=== PATIENT | male | born 1935 | race Native Hawaiian/Other Pacific Islander ===

== ENCOUNTER 2017-04-09 08:28 | Emergency (ER) | payer OTHER ==
[~2017-04-09] VITALS: Ht 162.6 cm; Wt 65.5 kg
[~2017-04-09 08:28] MED LIST: ATOR10 PO; CEFT500T PO; HYDROCODONE PO; METR-1 PO; OXYC-360 PO; VASO10TA8 PO
[2017-04-09 08:32] VITALS: BP 146/76; PULSE 74; RESP 16; TEMP 97.5; O2SAT 99
[2017-04-09] MEDS ORDERED: PRED20 PO (08:49)
[2017-04-09] MEDS ORDERED: OMEP40CA2 PO (08:51)
[2017-04-09] MEDS ORDERED: HYDR12.57 PO (08:52)
--- NOTE | 2017-04-09 08:59 | PD ---
HPI Chief Complaint: Injury Time Seen by Provider: 08:41 Travel History International Travel<30 days: No Contact w/Intl Traveler<30days: No Traveled to known affect area: No History of Present Illness HPI 82-year-old male presents to the emergency room for evaluation of left ankle pain and swelling for the past 2 days. He denies trauma or injury. States pain started gradually and has worsened. Exacerbated with ambulation and when he pushes on the lateral aspect of the ankle. Improves at rest. He has not taken anything for symptoms. Denies any calf pain, fever, chills. He has history of gout in the great toe but that was many years ago. Only other history of hypertension and GERD. PFSH Past Medical History Cancer: No Cardiovascular Problems: Yes (water pill) Diabetes: No Diminished Hearing: No Hiatal Hernia: No Hypertension: Yes Medical other: Yes (HIGH CHOLESTEROL) Thyroid Disease: No Past Surgical History Other Surgery: Yes Social History Alcohol Use: Yes (WINE) Tobacco Use: No Substance Use: No Allergies-Medications (Allergen,Severity, Reaction): Coded Allergies: penicillin G (Unverified Allergy, Unknown, Diarrhea, 04/09/17) Reported Meds & Prescriptions Reported Meds & Active Scripts Active Reported Percocet (Oxycodone/Acetaminophen) 5 Mg/325 Mg Tab 1-2 Tab PO Q6HPRN FOR PAIN Flagyl (Metronidazole) 500 Mg Tab 500 Mg PO BID Ceftin (Cefuroxime Axetil) 500 Mg Tab 500 Mg PO BID [Hydrocodone] 1 Tab PO Q4HPRN Lipitor (Atorvastatin Calcium) 10 Mg Tab 10 Mg PO HS Vasotec (Enalapril Maleate) 10 Mg Tab 10 Mg PO DAILY Review of Systems Except as stated in HPI: all other systems reviewed are Neg Physical Exam Narrative GENERAL: Well-nourished, well-developed male in no acute distress. Afebrile. Ambulatory. SKIN: Focused skin assessment warm/dry. Mild erythema and mild increased warmth of the left foot and ankle. HEAD: Normocephalic. EYES: No scleral icterus. No injection or drainage. NECK: Supple, trachea midline. No JVD or lymphadenopathy. CARDIOVASCULAR: Regular rate and rhythm without murmurs, gallops, or rubs. RESPIRATORY: Breath sounds equal bilaterally. No accessory muscle use. MUSCULOSKELETAL: No cyanosis. Mild to moderate 2+ pitting edema of the left lower ankle and foot. Negative Homans test. No calf tenderness. Full range of motion of the ankle and foot without significant pain. Bounding 2+ dorsalis pedis pulse. Data Data Last Documented VS Vital Signs Date Time Temp Pulse Resp B/P (MAP) Pulse Ox O2 Delivery O2 Flow Rate FiO2 04/09/17 08:32 97.5 74 16 146/76 (99) 99 MDM Medical Decision Making Medical Screen Exam Complete: Yes Emergency Medical Condition: Yes Medical Record Reviewed: Yes Differential Diagnosis Gout, infectious etiology unlikely, sprain, strain Narrative Course 82-year-old male with a history of gout, hypertension, and GERD presents to the emergency room for evaluation of left ankle and foot pain for the past 2 days. He denies trauma or injury. Pain is worsened with ambulation. Improves at rest. Physical exam reveals mild to moderate 2+ pitting edema of the left lower ankle and foot. No edema in the calf or proximal ankle. Negative Homans test. No calf tenderness. Full range of motion of the ankle and foot without significant pain. Bounding 2+ dorsalis pedis pulse. History and physical exam are consistent with inflammatory arthritis. No suspicion for infectious etiology as patient has had no fever and there is no pain with passive range of motion. Patient denies history of diabetes. He will be discharged with short course of prednisone and told to follow-up with a primary care physician or return immediately for worsening symptoms. He understands and agrees to plan. Diagnosis Primary Impression: Gouty arthritis Referrals: Primary Care Physician Additional Instructions: Rest and drink plenty of fluids. Take prednisone as directed, until gone. On day 5, only take 20 mg (1 pill instead of 2). On day 6, take last 20 mg. Take Tylenol as directed, as needed for pain. Apply ice to the affected area for 20 minutes at a time, as needed for pain and swelling. Follow-up with a primary care physician. Return to the emergency room for worsening symptoms. Med/Other Pt SpecificInfo: Prescription(s) given Scripts Prednisone (Prednisone) 20 Mg Tab 40 MG PO DAILY, #10 TAB 0 Refills Take 40 mg (2 tablets) daily for 5 days Prov: Alphonso Aggarwal MD 04/09/17 Disposition: 01 DISCHARGE HOME Condition: Stable Alina Armando Apr 09, 2017 08:59
== END 2017-04-09 09:25 | disposition home or self-care (01) ==
LOC: NEPD 08:28
DX: M10.9 Gout, unspecified (principal); E78.00 Pure hypercholesterolemia, unspecified; I10 Essential (primary) hypertension
CPT/HCPCS: 99283